=== PATIENT | male | born 1990 | race Caucasian/White ===

== ENCOUNTER 2017-11-10 18:01 | Emergency (ER) | payer SELFPAY ==
[2017-11-10 18:06] VITALS: BP 129/69
[2017-11-10] MEDS ORDERED: KETOROLAC TROMETHAMINE INJ/PF 30 MG/1 ML SDV IM ONE (19:02)
[2017-11-10] MEDS ORDERED: PENICILLIN V POTASSIUM 500 MG TABLET PO ONE (19:02)
--- NOTE | 2017-11-10 19:09 | ER Document Report ---
ED Oral Problem - General Chief Complaint: Toothache Stated Complaint: MOUTH PAIN Time Seen by Provider: 11/10/17 18:36 Mode of Arrival: Ambulatory Information source: Patient TRAVEL OUTSIDE OF THE [place] IN LAST 30 DAYS: No - HPI Patient complains to provider of: Swelling of face Onset: Yesterday Notes: Patient is here with complaints of right-sided facial swelling and pain that started yesterday. Patient has significant dental decay. He believes that he may have some infection. No fever. No difficulty breathing or swallowing. No nausea, vomiting, diarrhea. No chest pain or shortness of breath. No rash. No headache, blurred vision, numbness tingling weakness. No other complaints. - Related Data Allergies/Adverse Reactions: No Known Allergies Allergy (Verified 11/10/17 18:03) Past Medical History - Social History Smoking Status: Unknown if Ever Smoked Family History: Arthritis. denies: CAD, CVA, DM, Hyperlipidemia, Hypertension, Malignancy, Thyroid Disfunction Patient has suicidal ideation: No Patient has homicidal ideation: No Renal/ Medical History: Denies: Hx Peritoneal Dialysis Musculoskeltal Medical History: Reports Hx Musculoskeletal Deformity, Reports Hx Musculoskeletal Trauma Traumatic Medical History: Reports: Hx Fractures - Right fifth finger Past Surgical History: Reports: Hx Orthopedic Surgery - right hand - Immunizations Hx Diphtheria, Pertussis, Tetanus Vaccination: No - 6-7 years ago Review of Systems - Review of Systems -: Yes All other systems reviewed and negative Physical Exam - Vital signs Vitals: Temp Pulse Resp BP Pulse Ox 98.6 F 81 16 129/69 H 100 11/10/17 18:04 11/10/17 18:04 11/10/17 18:04 11/10/17 18:04 11/10/17 18:04 - Notes Notes: GENERAL: alert, cooperative, nontoxic, no distress. HEAD: normocephalic, atraumatic EYES: conjunctiva pink without discharge, no external redness or swelling. EARS: no external swelling, no external redness NOSE: atraumatic, no external swelling MOUTH/THROAT: mucous membranes moist and pink. Widespread dental decay. Small amount of purulent drainage noted from tooth #6. No drainable abscess noted. Mild swelling noted to the right cheek. No redness. No rash. NECK: soft, supple, full range of motion, no meningismus. CHEST: no distress, lungs clear and equal throughout. No wheezing, rales, rhonchi. CARDIAC: regular rate and rhythm, no murmur, normal capillary refill, normal pulses. BACK: full range of motion, no CVA tenderness. EXTREMITIES: full range of motion of all extremities. No redness, no swelling. NEURO: alert and oriented 3, no focal deficits, full range of motion of all extremities. PYSCH: appropriate mood, affect. Patient is cooperative. SKIN: pink, warm, dry, no rash. Course - Re-evaluation Re-evalutation: 11/10/17 19:05 Patient is nontoxic appearing with stable vitals. He is here with complaints of right-sided facial swelling and dental pain. He is noted to have widespread dental decay and has plus that is able to be expressed when touching the right cheek area that comes out the tooth #6 area. There is no redness or signs of facial cellulitis. He is nontoxic appearing. He is afebrile. Patient will be given a shot of Toradol dose of Pen-Vee K here in the emergency department. Follow-up with a dentist at the next available appointment. Follow-up sooner for worsening symptoms, high fever, persistent vomiting, difficulty breathing, or for any further concerns. The patient is noted to have elevated blood pressure during today's emergency department visit. The patient was informed of this finding. The patient was instructed that this may be related to pre-hypertension and requires further evaluation with a primary care provider. The patient has no hypertensive symptoms at this time. The patient's emergency department workup and current diagnosis were explained to the patient and or family. Follow-up instructions were provided. Medications if prescribed were discussed. Instructions for when to return to the emergency department including specific worrisome symptoms were discussed with the patient and/or family. - Vital Signs Vital signs: Temp Pulse Resp BP Pulse Ox 98.6 F 81 16 129/69 H 100 11/10/17 18:04 11/10/17 18:04 11/10/17 18:04 11/10/17 18:04 11/10/17 18:04 Discharge - Discharge Clinical Impression: Dental decay, Dental abscess Condition: Stable Disposition: HOME, SELF-CARE Instructions: [facility], Penicillin V K ([facility]), Toothache ([facility]), Dentist, Dental Infection or Abscess ([facility]) Additional Instructions: Take medications as prescribed. Follow-up with your dentist at the next available appointment. Follow-up sooner for increasing pain, fever, redness, drainage, difficulty breathing or swallowing, or for any further concerns. Your blood pressure was elevated during today's visit. Have this rechecked with your doctor. Prescriptions: Diclofenac Sodium [Voltaren 50 Mg Tablet.] 50 mg PO BID #20 tablet. Penicillin V Potassium [Penicillin Vk 500 mg Tablet] 500 mg PO BID #20 tablet Forms: Elevated Blood Pressure, Smoking Cessation Education Referrals: [facility] [Provider Group] - Follow up as needed [facility] [Provider Group] - Follow up as needed
== END 2017-11-10 19:35 | disposition home or self-care (01) ==
LOC: ER 18:01
DX: K04.7 Periapical abscess without sinus (principal); K02.9 Dental caries, unspecified
CPT/HCPCS: 99282; 96372; J1885

== ENCOUNTER 2019-03-15 00:02 | Emergency (ER) | payer SELFPAY ==
[2019-03-15 00:26] VITALS: BP 129/72
== END 2019-03-15 04:45 | disposition left against medical advice (07) ==
LOC: ER 00:02
DX: Z53.21 Procedure and treatment not carried out due to patient leaving prior to being seen by health care provider (principal)